=== PATIENT | female | born 1955 | race African-American/Black ===

== ENCOUNTER 2020-05-16 19:23 | Inpatient (IN) | payer MEDICARE ==
[2020-05-16 20:15] LABS: ALT (SGPT) 28 U/L (8-55); AST (SGOT) 34 U/L (5-34); Albumin 4.2 g/dL (3.4-4.8); Alkaline Phosphatase 81 U/L (40-110); Anion Gap 19 mmol/L (10-20); BUN (Urea Nitrogen) 33 mg/dL (9.8-20.1); Bilirubin, Total 0.4 mg/dL (0.2-1.2); Calc. Creatinine Clearance 0 mL/min (70-130); Calcium 9.3 mg/dL (7.8-10.44); Carbon Dioxide 22 mmol/L (23-31); Chloride 102 mmol/L (98-107); Globulin 3.2 g/dL (2.4-3.5); Glucose 122 mg/dL (80-115); Lipase 32 U/L (8-78); Potassium 4.4 mmol/L (3.5-5.1); Protein, Total 7.4 g/dL (5.8-8.1); Sodium 139 mmol/L (136-145)
[2020-05-16 20:36] LABS: CKMB 0.8 ng/mL (0-6.6)
[2020-05-16 21:40] LABS: #Eosinphils 0.2 10x3/uL (0.0-0.5); #Monocytes 0.5 10x3/uL (0.0-1.1); #Neutrophils 5.9 10x3/uL (1.5-8.4); %Basophils 0.4 % (0.0-2.0); %Eosinophils 2.4 % (0.0-6.0); %Lymphocytes 15.7 % (18.0-47.0); %Monocytes 6.5 % (0.0-10.0); %Neutrophils 74.5 % (40.0-75.0); Hemoglobin 8.7 g/dL (12.0-15.5); Mean Corpuscular HGB CONC 31.3 g/dL (32.0-36.0); Mean Corpuscular Hemoglobin 28.5 pg (27.0-33.0); Mean Corpuscular Volume 91.1 fl (81.6-98.3); Mean Platelet Volume 11.8 fl (7.4-10.4); Platelet Count 224 10x3/uL (150-450); RBC Distribution Width 15.2 % (11.5-14.5); Red Blood Cell (RBC) Count 3.05 10x6/uL (3.90-5.03)
[2020-05-16] MEDS ORDERED: cefTRIAXone\\ROCEPHIN 2 GM VIAL ONE (21:51)
[2020-05-16 22:38] LABS: Lactic Acid 1.6 mmol/L (0.5-2.2)
[2020-05-16] MEDS ORDERED: Bisacodyl 5 MG TAB PO PRN (22:44)
[2020-05-16] MEDS ORDERED: Guaifenesin DM 100-10/5 ML UDCUP PO PRN (22:44)
[2020-05-16] MEDS ORDERED: Acetaminophen 325 MG TAB PO PRN (22:44)
[2020-05-16] MEDS ORDERED: Calcium Carbonate 500 MG ChewTAB PO PRN (22:44)
[2020-05-16] MEDS ORDERED: Albuterol Sulfate 2.5 mg/3 ml Neb NEB PRN (22:47)
[2020-05-17 00:07] LABS: SARS-CoV-2 NAA Rapid Test Not Detected (NotDetected)
[2020-05-17 01:22] LABS: Lactic Acid 1.5 mmol/L (0.5-2.2)
[2020-05-17 01:49] LABS: Bilirubin Neg (Negative); Blood, Urine Negative (Negative); Clarity Clear (Clear); Glucose, Urine (Dipstick) Normal (Negative); Ketone, Urine Negative (Negative); Leukocyte Negative (Negative); Nitrite Negative (Negative); Protein, Urine (Dipstick) 30 mg/dl (Neg-Trace); Urobilinogen Normal mg/dL (Less than 2)
[2020-05-17 01:59] LABS: Bacteria/HPF None Seen HPF (None Seen); Mucous/LPF None Seen LPF (<2+); RBC/HPF 0-3 HPF (0-3); Squamous Epithelial 0-3 HPF (0-3); WBC/HPF 0-3 HPF (0-3)
[2020-05-17 02:39] VITALS: BMI 43.5
[2020-05-17] MEDS ORDERED: Sodium Chloride 0.9% 500 ML IV SCH (02:45)
[2020-05-17 05:41] LABS: #Eosinphils 0.2 10x3/uL (0.0-0.5); #Monocytes 0.5 10x3/uL (0.0-1.1); #Neutrophils 4.2 10x3/uL (1.5-8.4); %Basophils 0.4 % (0.0-2.0); %Eosinophils 3.2 % (0.0-6.0); %Monocytes 7.8 % (0.0-10.0); %Neutrophils 62.2 % (40.0-75.0); Hemoglobin 8.4 g/dL (12.0-15.5); Mean Corpuscular Volume 90.3 fl (81.6-98.3); Mean Platelet Volume 11.7 fl (7.4-10.4); Platelet Count 225 10x3/uL (150-450); RBC Distribution Width 15.3 % (11.5-14.5); White Blood Cell (WBC) Count 6.8 10x3/uL (3.5-10.5)
[2020-05-17 05:45] LABS: Lactic Acid 1.6 mmol/L (0.5-2.2)
[2020-05-17 05:51] LABS: Anion Gap 15 mmol/L (10-20); BUN (Urea Nitrogen) 29 mg/dL (9.8-20.1); Calc. Creatinine Clearance 34 mL/min (70-130); Calcium 8.6 mg/dL (7.8-10.44); Carbon Dioxide 26 mmol/L (23-31); Chloride 104 mmol/L (98-107); Glucose 96 mg/dL (80-115); Potassium 3.5 mmol/L (3.5-5.1); Sodium 141 mmol/L (136-145)
[2020-05-17] MEDS: Aspirin 81 mg Enteric Coated Tablet PO SCH (10:07)
[2020-05-17] MEDS: Azithromycin 250 MG TAB PO SCH (10:07)
[2020-05-17] MEDS: Metoprolol Tartrate 25 MG TAB PO SCH ×3 (10:07→21:52)
[2020-05-17 12:24] LABS: Hemoglobin A1c 5.2 % (4.0-6.0)
[2020-05-17 18:30] LABS: Hep B Surf Ag Non-Reactive S/CO (NonReactive)
[2020-05-17 18:44] LABS: HBSAg Index 0.16 S/CO (0-0.99)
[2020-05-17] MEDS: Polyethylene Glycol 3350 17 GM Packet PO SCH (19:49)
[2020-05-17] MEDS: Senokot S 8.6-50 MG TAB PO SCH ×2 (19:49→23:50)
[2020-05-17] MEDS: Heparin 5,000 UNITS/ML VIAL SC SCH ×2 (19:49→21:52)
[2020-05-18 06:36] LABS: #Eosinphils 0.3 10x3/uL (0.0-0.5); #Monocytes 0.4 10x3/uL (0.0-1.1); #Neutrophils 3.1 10x3/uL (1.5-8.4); %Basophils 0.7 % (0.0-2.0); %Eosinophils 5.3 % (0.0-6.0); %Lymphocytes 32.8 % (18.0-47.0); %Monocytes 7.5 % (0.0-10.0); %Neutrophils 53.4 % (40.0-75.0); Hemoglobin 8.1 g/dL (12.0-15.5); Mean Corpuscular HGB CONC 30.1 g/dL (32.0-36.0); Mean Corpuscular Hemoglobin 27.6 pg (27.0-33.0); Mean Corpuscular Volume 91.5 fl (81.6-98.3); Mean Platelet Volume 11.9 fl (7.4-10.4); Platelet Count 210 10x3/uL (150-450); RBC Distribution Width 15.2 % (11.5-14.5); Red Blood Cell (RBC) Count 2.94 10x6/uL (3.90-5.03); White Blood Cell (WBC) Count 5.9 10x3/uL (3.5-10.5)
[2020-05-18 06:52] LABS: Lactic Acid 1.2 mmol/L (0.5-2.2)
[2020-05-18 06:55] LABS: Anion Gap 14 mmol/L (10-20); BUN (Urea Nitrogen) 25 mg/dL (9.8-20.1); Calc. Creatinine Clearance 36 mL/min (70-130); Calcium 8.5 mg/dL (7.8-10.44); Carbon Dioxide 26 mmol/L (23-31); Chloride 104 mmol/L (98-107); Glucose 90 mg/dL (80-115); Potassium 3.7 mmol/L (3.5-5.1); Sodium 140 mmol/L (136-145)
[2020-05-18] MEDS ORDERED: Milk Of Magnesia 30 ML UDCUP PO SCH (08:45)
[2020-05-18] MEDS: Senokot S 8.6-50 MG TAB PO SCH (09:56)
[2020-05-18] MEDS: Heparin 5,000 UNITS/ML VIAL SC SCH ×2 (09:56→15:17)
[2020-05-18] MEDS: Polyethylene Glycol 3350 17 GM Packet PO SCH (09:56)
[2020-05-18] MEDS: Azithromycin 250 MG TAB PO SCH (09:56)
[2020-05-18] MEDS: Aspirin 81 mg Enteric Coated Tablet PO SCH (09:56)
[2020-05-18] MEDS: Metoprolol Tartrate 25 MG TAB PO SCH (09:56)
[2020-05-18 12:29] VITALS: BP 110/69; TEMP 98
[2020-05-18 15:15] LABS: Body Surface Area 2.26
[2020-05-18 15:39] LABS: 24 Hr Creatinine 964.9 mg/24 hr (710-1650); Creatinine, Urine 96.49 mg/dL (47-110)
== END 2020-05-18 16:00 | disposition home or self-care (01) | DRG 312 ==
LOC: CSHERS 19:23 → CSHTELE 22:44 → UNDOADMOB 05-17 02:35 → CSHTELE 05-17 02:35 → INTOOBSV 05-17 02:35 → OBSVTOIN 05-18 09:38
PROVIDERS: ADMIT Student in an Organized Health Care Education/Training Program; ATTEND Internal Medicine
PROC: 5A1D70Z Performance of Urinary Filtration, Intermittent, Less than 6 Hours Per Day (ICD-10-PCS; principal; 2020-05-18)
DX: R55 Syncope and collapse (principal); N18.6 End stage renal disease; E87.2 Acidosis; J98.11 Atelectasis; I12.0 Hypertensive chronic kidney disease with stage 5 chronic kidney disease or end stage renal disease; Z68.41 Body mass index [BMI] 40.0-44.9, adult; Z86.16 Personal history of COVID-19; E11.22 Type 2 diabetes mellitus with diabetic chronic kidney disease; E11.65 Type 2 diabetes mellitus with hyperglycemia; Z79.4 Long term (current) use of insulin; D63.8 Anemia in other chronic diseases classified elsewhere; I51.89 Other ill-defined heart diseases; Z99.2 Dependence on renal dialysis; K59.00 Constipation, unspecified; E66.01 Morbid (severe) obesity due to excess calories; Z88.5 Allergy status to narcotic agent; Z91.09 Other allergy status, other than to drugs and biological substances; E03.9 Hypothyroidism, unspecified; Z20.822 Contact with and (suspected) exposure to COVID-19
CPT/HCPCS: 36415; 36416; 71045; 74177; 80048; 80053; 81001; 82553; 82570; 82575; 83036; 83605; 83690; 83880; 84439; 84443; 84484; 85025; 87340; 93005; 93306; 93970; 94760; 96365; 96366; 96372; G0378; J0696; J1644; U0002